=== PATIENT | female | born 1990 | race Caucasian/White ===

== ENCOUNTER 2021-10-09 12:53 | Emergency (ER) | payer OTHER, SELFPAY ==
[2021-10-09 12:54] VITALS: BP 111/76; PULSE 93; RESP 14; TEMP 36.3; O2SAT 97; BMI 29.5
--- NOTE | 2021-10-09 13:10 | US_ITS ---
EXAM: US , LIMITED CLINICAL INDICATION: vaginal bleeding TECHNIQUE: Real-time limited ultrasound of the maternal uterus with image documentation. This report was created using [employer] report generation technology. COMPARISON: None. FINDINGS: FETUS: Single live fetus in breech presentation. No biometric measurements are obtained. HEART RATE: cardiac rate is 157 bpm. PLACENTA: Posterior placenta without previa or abruption. AMNIOTIC FLUID: Normal amniotic fluid volume. CERVIX: Cervix measures 3.3 cm in length. US/OB Limited (No Biometrics) IMPRESSION: Single live fetus and breech presentation with clinical gestational age of 19 weeks. No evidence of placenta previa or abruption. No perigestational hemorrhage. Electronically Signed: Robbie Payton MD at 14:10 EDT ,
--- NOTE | 2021-10-09 13:11 | EDS_ITS ---
HPI HPI - Female History of Present Illness Chief Complaint: Vag Bld, Preg Informant: patient Narrative Narrative: 31-year-old female G3, P1 Ab1 at 19 weeks presenting for vaginal bleeding. Patient has not gotten any of her care through this hospital system. She uses [facility]. She states that today she started having light vaginal bleeding and became quite concerned because last year she had an ectopic . She talked with her manager pipeline who felt that she would be okay but she states that she is causing herself to be in a panic state and wanted to be seen. [facility] Medical History Ectopic Gestational diabetes Preeclampsia Home Medications aspirin 81 mg capsule 81 mg PO DAILY 10/09/21 [History Last Taken Unknown] prenat.vits,andrey,gsk-biat-jkzht 1 tab PO DAILY 10/09/21 [History Last Taken Unknown] Allergy/AdvReac Type Severity Reaction Status Date / Time No Known Allergies Allergy Verified 10/09/21 13:01 Social History (Updated 10/09/21 @ 13:[address] Carroll Diez DO) current gender identity: female Smoking Status: Never smoker ROS ROS ED Constitutional Constitutional ED: Denies chills or weight loss Eyes Eyes: Denies change in vision or diplopia ENT ENT ED: Denies ear pain, rhinorrhea or sore throat Cardiovascular Cardiovascular: Denies chest pain, orthopnea, palpitations or racing heartbeat Respiratory/Chest Respiratory/Chest: Denies cough, dyspnea or orthopnea Gastrointestinal Gastrointestinal: Denies abdominal pain, diarrhea, nausea or vomiting Genitourinary Genitourinary ED: Reports other Details: See history of present illness ; Denies dysuria, hematuria or urinary frequency Musculoskeletal Musculoskeletal: Denies arthralgias or myalgias Integumentary Denies abscess or rash Neurologic Neurologic: Denies headache(s) or weakness Psychiatric Psychiatric: Denies anxiety, depression, suicidal ideation or suicidal thoughts Endocrine Endocrinology: Denies polydipsia, polyphagia or polyuria Allergic/Immunologic Allergic/Immunologic ED: Denies mouth swelling, tongue swelling or urticaria EXAM Physical Exam Const Vital Signs: 10/09/21 12:54 Temperature 97.3 F L Temperature Source Temporal Pulse Rate 93 Respiratory Rate 14 Blood Pressure 111/76 Blood Pressure Mean 87 Pulse Ox 97 Oxygen Delivery Method Room Air Positive well nourished and well developed General Appearance ED: well developed HEENT Reports normocephalic, head/scalp atraumatic and moist mucous membranes Eyes PERRL and EOMs intact bilaterally Neck no lymphadenopathy, supple and no JVD Resp normal respiratory effort and clear to auscultation bilaterally Cardio regular rate, regular rhythm and no murmurs GI normal to inspection, nondistended, normoactive bowel sounds and non-tender Palpation: soft Back/Spine no CVA tenderness and normal ROM Extremity normal to inspection General Extremety ED: Negative for edema General Extremity: Negative for edema Neuro oriented x3 and CN's II-XII intact bilaterally Sensorium / Orientation: alert Motor Exam: strength 5/5 throughout Psych mental status grossly normal Mood & Affect: anxious and tearful; Negative for depressed Skin no rashes or lesions noted and no wounds MDM MDM MDM Narrative Medical decision making narrative: Patient is be positive. Obstetrics ultrasound shows a single live fetus with a clinical gestational age of 19 weeks. There is no placenta previa or abruption no. Gestational hemorrhage. Baby's heart tones are good. At this point patient will be discharged home following up with her manager pipeline. Lab Data Labs: Laboratory Results - last 24 hr 10/09/21 13:20 Blood Type B POSITIVE Radiography Diagnostic Testing: Clinical Impression(s) from Imaging Studies Obstetrics Ultrasound 10/09/21 13:10 IMPRESSION: Single live fetus and breech presentation with clinical gestational age of 19 weeks. No evidence of placenta previa or abruption. No perigestational hemorrhage. Electronically Signed: Robbie Payton MD at 14:10 EDT , Discharge Plan Triage Chief Complaint: Vag Bld, Preg ED Provider: Carroll Diez Dx/Rx/DC Orders Clinical Impression: Second trimester bleeding Prescriptions: No Action Vitamin Tablet 1 tab PO DAILY aspirin 81 mg Capsule 81 mg PO DAILY Primary Care Provider: Provider,Ed Physician Activity Restrictions/Additional Instructions: Please follow-up with your manager pipeline. Return if worsening or concerns Disposition Disposition: Home, Self Care
== END 2021-10-09 14:25 | disposition home or self-care (01) ==
PROVIDERS: Emergency Provider Emergency Medicine; Visit Provider Emergency Medicine
DX: O20.9 Hemorrhage in early pregnancy, unspecified (principal); Z3A.19 19 weeks gestation of pregnancy; O09.12 Supervision of pregnancy with history of ectopic pregnancy, second trimester
CPT/HCPCS: 36415; 76815; 86900; 86901; 99282

== ENCOUNTER 2022-09-20 01:59 | Emergency (ER) | payer OTHER, SELFPAY ==
[2022-09-20 02:00] VITALS: BP 132/82; PULSE 79; RESP 15; TEMP 36.4; O2SAT 97; BMI 31.1
[2022-09-20] MEDS: Dicyclomine 20 MG/2 ML Vial IM (02:54)
[2022-09-20] MEDS: Mag Hydrox/Al Hydrox/Simeth 30 ML UDC PO (02:54)
[2022-09-20 02:59] LABS: Absolute Lymphocyte Count 2.32 X10^3/uL (0.83-4.51); Absolute Neutrophil Count 5.5 X10^3/uL (2.0-7.7); Basophil# 0.03 X10^3/uL; Basophil% 0.3 % (0-1); Eosinophil# 0.13 X10^3/uL; Eosinophils% 1.5 % (0-5); Hematocrit 39.9 % (37-47); Lymphocyte # 2.32 X10^3/ul (0.83-4.51); Mean Corp Hgb Conc 32.6 g/dL (32-36); Mean Corpuscular Hgb 27.2 pg (27.0-32.0); Mean Corpuscular Volume 83.5 fL (81-99); Monocyte# 0.62 X10^3/uL; Monocyte% 7.2 % (0-10); NRBC Flagged by Analyzer 0 % (0-5); Neutrophil # 5.46 X10^3/uL (2.7-7.7); Neutrophil % 63.8 % (47-70); Platelet Count 279 K/mm3 (150-450); RBC Distribution Width CV 12.2 % (11.6-14.6); Red Blood Count 4.78 M/mm3 (4.2-5.4); White Blood Count 8.6 K/mm3 (4.4-11.0)
[2022-09-20 03:08] LABS: Internal QC Validated? YES +Cl - CLEAR BKGD; Pregnancy, Serum, hCG Quali. NEGATIVE Negative
[2022-09-20 03:15] LABS: AST(SGOT) 21 U/L (15-37); Alanine Aminotransfer ALT/SGPT 26 U/L (13-56); Albumin, Serum 3.4 g/dL (3.2-5.0); Alkaline Phosphatase 73 U/L (45-117); Anion Gap 6 (5-15); BUN 15 mg/dL (7-18); BUN/Creat Ratio 18.9 RATIO (10-20); Bilirubin, Direct 0.17 mg/dL (0.00-0.30); Calcium,Total 8.4 mg/dL (8.5-10.1); Chloride 108 mmol/L (98-107); Creatinine, Serum 0.79 mg/dL (0.55-1.02); EST Glomerular Filtration Rate 88 mL/min (>60); Est Glom Filt Rate - Afr Amer 107 mL/min (>60); Estimated Creatinine Clearance 76.43 ml/min; Globulin 4.2 g/dL (2.2-4.2); Glucose 122 mg/dL (74-106); Lipase 31 U/L (13-75); Potassium 3.5 mmol/L (3.5-5.1); Protein, Total 7.6 g/dL (6.4-8.2); Sodium Level 139 mmol/L (136-145)
--- NOTE | 2022-09-20 03:53 | EX.ED.DYSGE1 ---
HPI History of Present Illness Chief Complaint: Abd Pain Informant: patient Narrative Narrative: And is 32-year-old female with no significant past medical history. She states that 1 to 2 hours prior to arrival she developed crampy abdominal pain in the upper abdomen. She states she felt nauseous with this. She states that she had to curl up in the position. She states she was concerned she may not be able to care for her baby because of her pain and with this comes in for evaluation. Patient does state that upon arrival symptoms seem to have spontaneously improved but have not completely resolved. PFSH PFS Medical History (Updated 09/20/22 @ 03:[address] Erwin Lazar DO) Ectopic Gestational diabetes Preeclampsia Home Medications dicyclomine 20 mg tablet 20 mg PO 4X/DAY PRN PRN Abdominal pain/spasm #28 tabs 09/20/22 [Rx Last Taken Unknown] famotidine 20 mg tablet (Pepcid) 20 mg PO BID 30 days #60 tabs 09/20/22 [Rx Last Taken Unknown] ondansetron 4 mg disintegrating tablet 4 mg PO TID PRN nausea and vomiting #21 tabs 09/20/22 [Rx Last Taken Unknown] Allergy/AdvReac Type Severity Reaction Status Date / Time IBUPRFOEN AdvReac Bleeding Uncoded 09/20/22 02:08 Surgical History Hx of breast reduction, elective Hx of section Social History (Updated 10/09/21 @ 13:[address] Carroll Diez DO) Smoking Status: Never smoker ROS ROS ED Constitutional Constitutional ED: Denies chills or fever(s) ENT ENT ED: Denies sore throat Cardiovascular Cardiovascular: Denies chest pain Respiratory/Chest Respiratory/Chest: Denies cough or dyspnea Gastrointestinal Gastrointestinal: Reports abdominal pain and nausea; Denies diarrhea or vomiting Genitourinary Genitourinary ED: Denies dysuria or hematuria Musculoskeletal Musculoskeletal: Denies back pain or myalgias Integumentary Denies rash Neurologic Neurologic: Denies headache(s) Hematologic/Lymphatic Hematologic/Lymphatic: Denies easy bleeding or easy bruising EXAM Physical Exam Const Vital Signs: 09/20/22 02:00 Temperature 97.5 F L Temperature Source Temporal Pulse Rate 79 Respiratory Rate 15 Blood Pressure 132/82 H Blood Pressure Mean 98 Pulse Ox 97 Oxygen Delivery Method Room Air Positive well nourished and well developed General Appearance ED: well developed HEENT Reports moist mucous membranes Eyes PERRL and EOMs intact bilaterally General Eye ED: Negative for scleral icterus Neck supple Resp normal respiratory effort and clear to auscultation bilaterally Cardio regular rate and regular rhythm Rate: other Other Details: Radial and carotid pulses are equal and symmetric GI non-distended GI Narrative: There is mild pain with palpation in the midepigastric region without voluntary guarding or rigidity. Negative Anthony sign. No pulsatile mass or fluid wave noted. Auscultation: normoactive bowel sounds Palpation: soft Back/Spine no CVA tenderness Extremity normal to inspection Neuro oriented x3, CN's II-XII intact bilaterally and no sensory deficits noted Sensorium / Orientation: alert Motor Exam: strength 5/5 throughout Psych mental status grossly normal Skin no rashes or lesions noted General Skin Exam: Negative for jaundice MDM MDM MDM Narrative Medical decision making narrative: Patient presented to the ER with stable vitals and reported spontaneous improvement of her symptoms upon arrival. Differential diagnosis is for viral gastroenteritis versus biliary colic versus pancreatitis. Patient blood work was obtained and revealed no clinically significant findings. After patient was treated with Bentyl and Pepcid and Zofran she did report resolution of symptoms and on reevaluation abdomen remains soft and nonsurgical. Therefore at this time I do not feel there is need for CT scan or further work-up and she is otherwise safe for discharge with symptomatic medications History & Record Review Discussion w/independent historian: Patient Lab Data Attestation: I reviewed the patient's lab results. Labs: Laboratory Results - last 24 hr 09/20/22 02:50 WBC 8.6 RBC 4.78 Hgb 13.0 Hct 39.9 MCV 83.5 MCH 27.2 MCHC 32.6 RDW Std Deviation 37.0 RDW Coeff of Erich 12.2 Plt Count 279 MPV 9.0 Immature Gran % (Auto) 0.200 Neut % (Auto) 63.8 Lymph % (Auto) 27.0 Mckinley % (Auto) 7.2 Eos % (Auto) 1.5 Baso % (Auto) 0.3 Absolute Neuts (auto) 5.5 Absolute Lymphs (auto) 2.32 Nucleated RBC % 0 Sodium 139 Potassium 3.5 Chloride 108 H Carbon Dioxide 25.0 Anion Gap 6 BUN 15 Creatinine 0.79 Estim Creat Clear Calc 76.43 Est GFR (MDRD) Af Amer 107 Est GFR (MDRD) Non-Af 88 BUN/Creatinine Ratio 18.9 Glucose 122 H Calcium 8.4 L Total Bilirubin 0.40 Direct Bilirubin 0.17 AST 21 ALT 26 Alkaline Phosphatase 73 Total Protein 7.6 Albumin 3.4 Globulin 4.2 Lipase 31 Serum , Qual NEGATIVE Discharge Plan Triage Chief Complaint: Abd Pain ED Provider: Erwin Lazar Dx/Rx/DC Orders Clinical Impression: Nonspecific abdominal pain, Nausea & vomiting Instructions: ED Gastritis (Adult), ED Gastroenteritis, Viral (Adult) Prescriptions: New ondansetron 4 mg tablet,disintegrating 4 mg PO TID PRN (Reason: nausea and vomiting) Qty: 21 0RF dicyclomine 20 mg tablet 20 mg PO 4X/DAY PRN PRN (Reason: Abdominal pain/spasm) Qty: 28 0RF famotidine [Pepcid] 20 mg tablet 20 mg PO BID 30 Days Qty: 60 0RF Primary Care Provider: Kamryn Curtis NP Referrals: Kamryn Curtis NP, CHEMICAL DETECTION EXPERT-C [Primary Care Provider] - Activity Restrictions/Additional Instructions: Your work-up indicates that your symptoms this evening are most likely from a viral stomach infection. Symptoms from this can last 24 hours to 7 days with the average being 3 days. Take the prescribed medication as directed to help control symptoms and return to the ER should you have any further concerns Disposition Disposition: Home, Self Care Discharge Date/Time: 09/20/22 04:16
[2022-09-20 04:15] VITALS: PULSE 74; RESP 16; O2SAT 99
[2022-09-20] MEDS: Ondansetron ODT 4 MG Tablet PO (04:15)
== END 2022-09-20 04:16 | disposition home or self-care (01) ==
PROVIDERS: Emergency Provider Emergency Medicine; PCP Registered Nurse; Visit Provider Emergency Medicine
DX: R10.9 Unspecified abdominal pain (principal); R11.2 Nausea with vomiting, unspecified
CPT/HCPCS: 80048; 80076; 83690; 84703; 85025; 96372; 99283

== ENCOUNTER 2024-04-01 09:08 | Emergency (ER) | payer OTHER, SELFPAY ==
[2024-04-01 09:08] VITALS: BP 137/99; PULSE 84; RESP 16; TEMP 36.1; O2SAT 94; BMI 31.8
--- NOTE | 2024-04-01 09:39 | EX.ED.UPPERE ---
HPI History of Present Illness Chief Complaint: Upper Extremity Injury Detail of Chief Complaint: Injury to right long finger Informant: patient Narrative Narrative: Patient presents the emergency department with complaint of injury to her right long finger. Patient states that she was taking laundry out of the bedroom and she dropped a sock and went to pick it up and significant other accidentally closed the door and kept her finger caught in the door. Patient is right-hand dominant. She is unsure of her last tetanus shot. PFSH PFSH Medical History (Updated 04/01/24 @ 10:[address] Jeferson Moran, DO) Preeclampsia Gestational diabetes Ectopic Home Medications ?Medication ?Instructions ?Recorded ?Last Taken ?Type cephalexin 500 mg capsule 500 mg PO Q6 #40 CAPSULES 04/01/24 Unknown Rx hydrocodone-acetaminophen 5-325mg 1 tab PO Q4H PRN PRN Pain 2 days 04/01/24 Unknown Rx 5mg-325mg #10 TABLETS phentermine 37.5 mg tablet 37.5 mg PO DAILY 04/01/24 Unknown History Allergy/AdvReac Type Severity Reaction Status Date / Time ibuprofen AdvReac Other Verified 04/01/24 09:09 Surgical History (Updated 04/01/24 @ 09:23 by Karlene Jordan) Hx of cholecystectomy Hx of breast reduction, elective Hx of section Social History (Updated 10/09/21 @ 13:[address] Carroll Diez, DO) Smoking Status: Never smoker ROS ROS ED Review of Systems ROS Unobtainable: other Constitutional Constitutional ED: Reports lethargy; Denies chills, fever(s), sweats or weight loss Eyes Eyes: Denies blurry vision, change in vision or diplopia ENT ENT ED: Denies rhinorrhea or sore throat Cardiovascular Cardiovascular: Denies chest pain, orthopnea or racing heartbeat Respiratory/Chest Respiratory/Chest: Reports dyspnea and dyspnea on exertion; Denies cough, orthopnea or sputum Gastrointestinal Gastrointestinal: Denies abdominal pain, diarrhea, nausea or vomiting Genitourinary Genitourinary ED: Denies dysuria, hematuria or urinary frequency Musculoskeletal Musculoskeletal: Reports other Details: Injury to right long finger, laceration through nail of the right long finger ; Denies arthralgias, back pain, myalgias or neck pain Integumentary Denies abscess, Abrasions or rash Neurologic Neurologic: Denies headache(s) or weakness Psychiatric Psychiatric: Denies anxiety, depression or suicidal thoughts Endocrine Endocrinology: Denies polydipsia, polyphagia or polyuria Hematologic/Lymphatic Hematologic/Lymphatic: Denies easy bleeding, easy bruising or lymphadenopathy Allergic/Immunologic Allergic/Immunologic ED: Denies mouth swelling, tongue swelling or urticaria EXAM Physical Exam Const Vital Signs: 04/01/24 09:08 Temperature 97 F L Temperature Source Temporal Pulse Rate 84 Respiratory Rate 16 Blood Pressure 137/99 H Blood Pressure Mean 111 Pulse Ox 94 Oxygen Delivery Method Room Air Positive well nourished and well developed General Appearance ED: well developed and NAD HEENT Reports TM's clear and moist mucous membranes normocephalic and atraumatic; Negative for trauma or tenderness Tympanic Membrane ED: Yes TM's clear Eyes PERRL and EOMs intact bilaterally General Eye ED: Negative for pale conjunctiva or scleral icterus Neck no lymphadenopathy, supple and no JVD General: Negative for tenderness Chest Wall inspection of chest normal and palpation of chest normal Chest: Negative for tenderness Resp normal respiratory effort and clear to auscultation bilaterally Effort and Inspection: Negative for respiratory distress or pain with movement Auscultation: Negative for rhonchi, wheezes or diminished lung sounds Cardio regular rate, regular rhythm, S1 normal heart sound, S2 normal heart sound and no murmurs Peripheral Pulses: pulses 2+ throughout GI normal to inspection, nondistended, normoactive bowel sounds, soft to palpation, non-tender, non-distended and no masses Back/Spine no CVA tenderness and no thoracic nor lumbar tenderness Extremity Extremity Narrative: Right long finger-patient has horizontal laceration through the midportion of the nail and onto the medial portion of the distal phalanx. She does have some bony tenderness on exam. She has good flexion and extension at the DIP and PIP joints. She is neurovascular intact distally. General Extremety ED: Negative for edema General Extremity: Negative for edema Neuro oriented x3, CN's II-XII intact bilaterally, no sensory deficits noted and gait normal Sensorium / Orientation: awake, alert, oriented to person, oriented to place and oriented to time Motor Exam: strength 5/5 throughout and strength abnormal Psych mental status grossly normal Skin no rashes or lesions noted and no wounds MDM MDM MDM Narrative Medical decision making narrative: Patient with injury to the right long finger. There is a laceration through the nail and suspect through the nailbed. Will obtain an x-ray to evaluate for fracture of distal phalanx. Will have to perform a digital block and perform repair of the suspected nailbed laceration. Will need to remove the nail. Patient in agreement. Please see procedure note for suture repair. Patient does have a distal phalanx fracture on x-ray. She was started on Keflex. She was given tetanus booster. She will be given a prescription for [place] for pain. She had a splint applied to the finger for protection. She will be referred to Dr. Kaur for follow-up for suture removal in 10 days. Patient advised return if increasing pain, redness, swelling, purulent drainage, or condition worsening way. I discussed case with Dr. Kaur who has no further recommendations and would be happy to see her in follow-up in the office for Radiography Diagnostic Testing: Three-view x-rays of the right long finger obtained interpreted by myself as distal phalanx fracture. Procedures Lacerations Finger laceration: Length: 0.98 in Depth: Nailbed Shape: Linear Prep: Sterile Conditions and Shure-Clens Laceration repair: Digital block, Irrigated, Lidocaine, Nerve block, Skin sutures, Wound explored and - (Nailbed sutures with 5 oh Vicryl No. 3) Irrigated (ml): 50 Number of Sutures/Rajani: 5 Suture Information: Vicryl, Ethilon and 5-0 Comment: 3 sutures in the nailbed 5-0 Vicryl and 2 sutures to the dermal surface of the distal phalanx of 5-0 nylon. Discharge Plan Triage Chief Complaint: Upper Extremity Injury ED Provider: Jeferson Moran Dx/Rx/DC Orders Clinical Impression: Open finger fracture, Nailbed laceration, finger Instructions: ED Fracture, Finger, Open, ED Laceration, Hand: All Closures Prescriptions: New hydrocodone-acetaminophen 5-325 mg tablet 1 tab PO Q4H PRN PRN (Reason: Pain) 2 Days Qty: 10 0RF cephalexin 500 mg capsule 500 mg PO Q6 Qty: 40 0RF No Action phentermine 37.5 mg tablet 37.5 mg PO DAILY Primary Care Provider: Kamryn Curtis NP Referrals: Morro Rodriguez MD [Med Staff - Active Staff] - 10 Day for suture removal Kamryn Curtis NP, SPRAY PAINTER-C [Primary Care Provider] - Print Language: Maldivian Disposition Disposition: Home, Self Care
[2024-04-01] MEDS: Lidocaine 1% (20 ml mdv) 20 ML Vial 8 ML INFILT (09:49)
[2024-04-01] MEDS: Diphth,Pertuss(Acell),Tet Vac 0.5 ML Vial IM (09:50)
--- NOTE | 2024-04-01 10:00 | RAD_ITS ---
PROCEDURE: FINGER(S) MIN 2 VIEWS REASON FOR EXAM: Injury to the 3rd digit. TECHNIQUE: 3 view(s) of the 3rd digit COMPARISON: None FINDINGS: Comminuted nondisplaced fracture at the tuft of the distal phalanx of the 3rd digit. Normal alignment. Soft tissue swelling. RAD/Finger(s) Min 2 Views IMPRESSION: Nondisplaced comminuted fracture of the tuft of the distal phalanx of the 3rd d igit with overlying soft tissue swelling. Reading Location: [id number]
[2024-04-01 10:21] VITALS: BP 115/62; PULSE 81; RESP 16; O2SAT 100
[2024-04-01] MEDS: Cephalexin 250 MG Capsule 500 MG PO (10:47)
== END 2024-04-01 11:04 | disposition home or self-care (01) ==
PROVIDERS: Emergency Provider Emergency Medicine; PCP Registered Nurse; Visit Provider Emergency Medicine
DX: S62.662B Nondisplaced fracture of distal phalanx of right middle finger, initial encounter for open fracture (principal); R06.09 Other forms of dyspnea; W23.0XXA Caught, crushed, jammed, or pinched between moving objects, initial encounter; Z23 Encounter for immunization
CPT/HCPCS: 12001; 11750; 11760; 73140; 90471; 90715; 99284